=== PATIENT | female | born 1965 | race Caucasian/White ===

== ENCOUNTER 2018-12-02 17:47 | Emergency (ER) | payer MEDICAID ==
[2018-12-02] MEDS ORDERED: HYDROCODONE/ACETAMINOPHEN 5-325 MG TABLET PO ONE (18:22)
--- NOTE | 2018-12-02 18:24 | ER Document Report ---
ED Medical Screen (RME) - General Chief Complaint: Fall Stated Complaint: FALL Time Seen by Provider: 12/02/18 18:21 Mode of Arrival: Wheelchair Information source: Patient Notes: 52-year-old female presented to ED for complaint of falling x4 today. She states she has a history of severe degenerative disc disease and multiple falls over the last week with 4 falls today. She has a contusions and abrasions to the left knee and elbow. She states she fell on her arm once on her knee wants and flat on her back once. She states 1 of the pains is to her left elbow where she had surgery a month ago after she broke the left arm. She had surgery on the left arm to the back gallbladder and a hysterectomy. She is alert oriented respirations regular and unlabored and speaking in full sentences. I have greeted and performed a rapid initial assessment of this patient. A comprehensive ED assessment and evaluation of the patient, analysis of test results and completion of medical decision making process will be conducted by an additional ED providers. Dictation of this chart was performed using voice recognition software; therefore, there may be some unintended grammatical errors. TRAVEL OUTSIDE OF THE [place] IN LAST 30 DAYS: No - Related Data Allergies/Adverse Reactions: No Known Allergies Allergy (Verified 12/02/18 17:49) Past Medical History Renal/ Medical History: Denies: Hx Peritoneal Dialysis Past Surgical History: Reports: Hx Cholecystectomy, Hx Hysterectomy, Hx Orthopedic Surgery - L arm, back Physical Exam - Vital signs Vitals: Temp Pulse Resp BP Pulse Ox 97.8 F 96 20 99/67 L 97 12/02/18 18:07 12/02/18 18:07 12/02/18 18:07 12/02/18 18:07 12/02/18 18:07 Course - Vital Signs Vital signs: Temp Pulse Resp BP Pulse Ox 97.8 F 96 20 99/67 L 97 12/02/18 18:07 12/02/18 18:07 12/02/18 18:07 12/02/18 18:07 12/02/18 18:07
[2018-12-02 19:31] LABS: ABSOLUTE BASOPHILS # (AUTO) 0.1 10^3/uL (0.0-0.2); ABSOLUTE EOSINOPHILS # (AUTO) 0.1 10^3/uL (0.0-0.6); ABSOLUTE LYMPHOCYTES (AUTO) 5.4 10^3/uL (0.5-4.7); ABSOLUTE MONOCYTES (AUTO) 0.8 10^3/uL (0.1-1.4); ABSOLUTE NEUT (AUTO) 6.2 10^3/uL (1.7-8.2); BASOPHILS % (AUTO) 0.9 % (0-2); EOSINOPHILS % (AUTO) 1.1 % (0-6); HEMATOCRIT 41.9 % (36.0-47.0); HEMOGLOBIN 14.1 g/dL (12.0-15.5); LYMPHOCYTES % (AUTO) 42.9 % (13-45); MEAN CORPUSCULAR HEMOGLOBIN 29.8 pg (27.0-33.4); MEAN CORPUSCULAR HGB CONC 33.8 g/dL (32.0-36.0); MEAN CORPUSCULAR VOLUME 88 fl (80-97); MONOCYTES % (AUTO) 6.3 % (3-13); PLATELET COUNT 270 10^3/uL (150-450); RED BLOOD COUNT 4.75 10^6/uL (3.72-5.28); RED CELL DISTRIBUTION WIDTH 15.3 % (11.5-14.0); SEGMENTED NEUTROPHILS % (AUTO) 48.8 % (42-78); TOTAL CELLS COUNTED % (AUTO) 100 %; WHITE BLOOD COUNT 12.7 10^3/uL (4.0-10.5)
--- NOTE | 2018-12-02 19:36 | RADIOLOGY REPORT (SQ) ---
EXAM DESCRIPTION: ELBOW LEFT OVER 2 VIEWS COMPLETED DATE/TIME: 12/02/2018 7:00 pm REASON FOR STUDY: fall today 4 times pain COMPARISON: None. NUMBER OF VIEWS: Four views. TECHNIQUE: AP, lateral, and both oblique radiographic images acquired of the left elbow. LIMITATIONS: None. FINDINGS: MINERALIZATION: Normal. BONES: Slight plate and threaded screws traverse the olecranon fracture. No perihardware lucency or hardware fracture. Other than the internally fixed olecranon fracture, no additional fracture. JOINT: Alignment is normal. No visible joint effusion. SOFT TISSUES: No soft tissue gas. No foreign body. OTHER: No other significant finding. IMPRESSION: Internally fixed olecranon fracture without adverse features. TECHNICAL DOCUMENTATION: JOB ID: [id number] [employer]- All Rights Reserved Reading location - IP/workstation name: [email or web address]
--- NOTE | 2018-12-02 19:37 | RADIOLOGY REPORT (SQ) ---
EXAM DESCRIPTION: KNEE LEFT 4 VIEW COMPLETED DATE/TIME: 12/02/2018 7:00 pm REASON FOR STUDY: fall today 4 times pain COMPARISON: None. NUMBER OF VIEWS: Four views. TECHNIQUE: AP, lateral, and both oblique radiographic images acquired of the left knee. LIMITATIONS: None. FINDINGS: MINERALIZATION: Normal. BONES: No acute fracture or dislocation. No worrisome bone lesions. Mild spurring of the tibial spi ken. JOINT: No effusion. SOFT TISSUES: No soft tissue swelling. No radio-opaque foreign body. OTHER: No other significant finding. IMPRESSION: NEGATIVE STUDY OF THE LEFT KNEE. NO RADIOGRAPHIC EVIDENCE OF ACUTE INJURY. TECHNICAL DOCUMENTATION: JOB ID: [id number] [employer]- All Rights Reserved Reading location - IP/workstation name: [email or web address]
[2018-12-02 19:48] LABS: ALANINE AMINOTRANSFERASE 16 U/L (9-52); ALKALINE PHOSPHATASE 48 U/L (38-126); ANION GAP 11 (5-19); ASPARTATE AMINO TRANSFERASE 19 U/L (14-36); BILIRUBIN,DIRECT 0.3 mg/dL (0.0-0.4); BILIRUBIN,TOTAL 0.4 mg/dL (0.2-1.3); BLOOD UREA NITROGEN 13 mg/dL (7-20); CALCIUM 9.5 mg/dL (8.4-10.2); CARBON DIOXIDE 29 mmol/L (22-30); CHLORIDE 101 mmol/L (98-107); GLUCOSE 88 mg/dL (75-110); POTASSIUM 4.5 mmol/L (3.6-5.0)
--- NOTE | 2018-12-02 19:48 | RADIOLOGY REPORT (SQ) ---
EXAM DESCRIPTION: CT LUMBAR SPINE WITHOUT COMPLETED DATE/TIME: 12/02/2018 7:06 pm REASON FOR STUDY: multiple falls today increase in pain COMPARISON: None. TECHNIQUE: Axial images acquired through the lumbar spine without intravenous contrast. Images revi ewed with lung, soft tissue and bone windows. Reconstructed coronal and sagittal MPR images reviewed . All images stored on PACS. All CT scanners at this facility use dose modulation, iterative reconstruction, and/or weight based d osing when appropriate to reduce radiation dose to as low as reasonably achievable (ALARA). [facility]: Dose Right [facility]: CareDose [facility]: Dose Right [facility]: Teradose 4D [facility]: SilMach RADIATION DOSE: mGy. LIMITATIONS: None. FINDINGS: SEGMENTATION: Normal. No transitional anatomy. ALIGNMENT: Normal. VERTEBRAL BODIES: No fractures. No dislocation. No acute findings. DISCS: Mild diffuse loss of the disc heights, most pronounced at L4-L5. PEDICLES, TRANSVERSE PROCESSES: No fractures. No dislocation. No acute findings. FACETS, POSTERIOR ELEMENTS: No fractures. No dislocation. No spinal stenosis. Moderate multilevel facet arthropathy. HARDWARE: None in the spine. VISUALIZED RIBS: No fractures. SOFT TISSUES: Gallbladder surgically absent. Calcified plaque of the visualized aortoiliac system. Remainder of the visualized intra-abdominal contents have a normal noncontrast CT appearance. OTHER: No other significant finding. IMPRESSION: 1. No acute fracture or listhesis of the lumbar spine. 2. Mild degenerative disc disease. 3. Moderate facet arthropathy. TECHNICAL DOCUMENTATION: JOB ID: [id number] Quality ID # [id number]: Final reports with documentation of one or more dose reduction techniques (e.g., Au tomated exposure control, adjustment of the mA and/or kV according to patient size, use of iterative reconstruction technique) 2010 [employer]- All Rights Reserved Reading location - IP/workstation name: [email or web address]
[2018-12-02 20:03] LABS: APPEARANCE,URINE SLIGHTLY-CLOUDY; BILIRUBIN,URINE NEGATIVE (NEGATIVE); COLOR,URINE YELLOW; GLUCOSE, URINE NEGATIVE (NEGATIVE); KETONES,URINE NEGATIVE (NEGATIVE); LEUKOCYTE ESTERASE,URINE SMALL (NEGATIVE); NITRITE,URINE POSITIVE (NEGATIVE); PROTEIN,URINE NEGATIVE (NEGATIVE); URINE SPECIFIC GRAVITY 1.011; UROBILINOGEN,URINE NEGATIVE mg/dL (<2.0)
[2018-12-02] MEDS ORDERED: KETOROLAC TROMETHAMINE 60 MG/2 ML SDV IM ONE (20:36)
[2018-12-02] MEDS ORDERED: DEXAMETHASONE SOD PHOS INJ 10 MG/1 ML VIAL IM ONE (20:36)
--- NOTE | 2018-12-02 20:42 | ER Document Report ---
ED General - General Chief Complaint: Fall Stated Complaint: FALL Time Seen by Provider: 12/02/18 18:21 Primary Care Provider: TACHO ZEPEDA MD [ACTIVE STAFF] - Follow up as needed EBENEZER WILCOX MD [ACTIVE STAFF] - Follow up as needed VIKASH LARA MD [ACTIVE STAFF] - Follow up as needed Mode of Arrival: Wheelchair Notes: Patient is a 52-year-old female presents the emergency department after falling 4 times today. She states that she has been having back pain and has had a hard time getting up and down. She also has left arm pain. She states that she has been having pain because she has been having increased pain due to lifting and moving. Patiently currently takes Neurontin, Flexeril, and trazodone. She is a past surgical history of a cholecystectomy, hysterectomy, left ORIF of the elbow. Denies any dizziness, loss consciousness, hitting her head, or any other symptoms at this time. TRAVEL OUTSIDE OF THE [place] IN LAST 30 DAYS: No - Related Data Allergies/Adverse Reactions: No Known Allergies Allergy (Verified 12/02/18 17:49) Past Medical History - General Information source: Patient - Social History Smoking Status: Current Every Day Smoker Family History: Reviewed & Not Pertinent Patient has suicidal ideation: No Patient has homicidal ideation: No Renal/ Medical History: Denies: Hx Peritoneal Dialysis Past Surgical History: Reports: Hx Cholecystectomy, Hx Hysterectomy, Hx Orthopedic Surgery - L arm, back Review of Systems - Review of Systems Notes: REVIEW OF SYSTEMS: CONSTITUTIONAL : Denies recent illness. Denies recent unintentional weight loss. Denies fever, chills, or sweats. EENT: Denies eye, ear, throat, or mouth pain, discharge, or symptoms. Denies nasal or sinus congestion. CARDIOVASCULAR: Denies chest pain. RESPIRATORY: Denies shortness of breath, cough, congestion, difficulty breathing, or wheezing. GASTROINTESTINAL: Denies nausea, vomiting, and diarrhea. Denies abdominal pain. Denies constipation. GENITOURINARY: Denies difficulty urinating, burning, blood in urine, urgency or frequency. MUSCULOSKELETAL: See HPI SKIN: Denies rash, itchiness, or lesions HEMATOLOGIC : Denies easy bruising or bleeding. LYMPHATIC: Denies swollen, painful, enlarged glands. NEUROLOGICAL: Denies no numbness or tingling denies weakness. Denies headache. Denies altered mental status. Denies alteration in speech. PSYCHIATRIC: Denies stress, anxiety, alteration in sleep patterns, or depression. All other systems reviewed and negative. Physical Exam - Vital signs Vitals: Temp Pulse Resp BP Pulse Ox 97.8 F 96 20 99/67 L 97 12/02/18 18:07 12/02/18 18:07 12/02/18 18:07 12/02/18 18:07 12/02/18 18:07 - Notes Notes: PHYSICAL EXAMINATION: GENERAL: Appears chronically ill, well-nourished, no acute distress. HEAD: Normocephalic, atraumatic. EYES: PERRL, conjunctiva normal, all extraocular movements intact, sclera no nicteric ENT: Dry mucous membranes. NECK: Supple, no noticeable swelling, redness, rash. Normal range of motion. LUNGS: Equal breath sounds bilaterally and clear to auscultation. No wheezes rales or rhonchi. CARDIOVASCULAR: S1-S2, regular rate, regular rhythm. Radial pulses 2+, normal. ABDOMEN: Normoactive bowel sounds. Soft, nontender, no guarding, no rebound tenderness, and no masses palpated. EXTREMITIES: Normal strength and range of motion, no pitting or edema. No cyanosis. NEUROLOGICAL: Moves all extremities upon command. Strength 5/5 in all extremities. PSYCH: Normal mood, normal affect. SKIN: Warm, dry. No rash, lesions, ulcerations noted. Normal skin turgor. Course - Re-evaluation Re-evalutation: 12/02/18 20:43 CBC is unremarkable. Urinalysis is normal. I suspect the patient may be dehydrated. But she is able to tolerate oral fluids. I have encouraged her to increase her oral intake of water. Patient was able to walk for me with no difficulty. Her x-rays are all normal. Hardware is intact. No neurological deficits noted. Patient is strong in all extremities. She will receive a dose of Decadron and Toradol here in the emergency department. I have advised her that she needs to also take her Protonix per day while she is on her Toradol. She is in agreement with this plan. Verbal discharge instructions were given to the patient. They verbalized understanding. They are stable for discharge. - Vital Signs Vital signs: Temp Pulse Resp BP Pulse Ox 97.9 F 72 20 140/72 H 100 12/02/18 21:20 12/02/18 21:20 12/02/18 21:20 12/02/18 21:20 12/02/18 21:20 - Laboratory Result Diagrams: 12/02/18 18:24 12/02/18 18:24 Laboratory results interpreted by me: 12/02/18 12/02/18 12/02/18 18:24 18:24 19:30 WBC 12.7 H RDW 15.3 H Absolute Lymphocytes 5.4 H Est GFR (Non-Af Amer) 56 L Urine Blood SMALL H Urine Nitrite POSITIVE H Ur Leukocyte Esterase SMALL H Discharge - Discharge Clinical Impression: Fall Qualifiers: Encounter type: initial encounter Qualified Code(s): W19.XXXA - Unspecified fall, initial encounter Condition: Stable Disposition: HOME, SELF-CARE Additional Instructions: You are seen today in the emergency department for falling. Please take your gabapentin only as prescribed. Please do not take more than your prescribed dose. Please make sure you stay well-hydrated with water. You can take the prescribed medication every 6 hours as needed for your pain. Please take your Protonix while you are on this medication. Please follow-up with primary care provider in regards to this visit. They are listed below. Prescriptions: Ketorolac Tromethamine [Toradol 10 mg Tablet] 10 mg PO Q6HP PRN #20 tablet PRN Reason: Referrals: VIKASH LARA MD [ACTIVE STAFF] - Follow up as needed TACHO ZEPEDA MD [ACTIVE STAFF] - Follow up as needed EBENEZER WILCOX MD [ACTIVE STAFF] - Follow up as needed
[2018-12-02 21:28] VITALS: BP 140/72
== END 2018-12-02 21:20 | disposition home or self-care (01) ==
LOC: ER 17:47
DX: Z04.3 Encounter for examination and observation following other accident (principal); M54.9 Dorsalgia, unspecified; M79.602 Pain in left arm; Z79.899 Other long term (current) drug therapy; F17.200 Nicotine dependence, unspecified, uncomplicated; Z98.890 Other specified postprocedural states
CPT/HCPCS: 99284; 96372; 36415; 85025; 80053; 81001; 73080; 73564; 72131; J1885; J1100

== ENCOUNTER 2019-04-07 19:41 | Emergency (ER) | payer MEDICAID ==
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
[2019-04-07] MEDS ORDERED: LIDOCAINE 1% INJ-PF (10 MG/ML) 30 ML SDV INJ ONE (20:22)
[2019-04-07] MEDS ORDERED: TETANUS/DIPHTHERIA TOX-ADULT 0.5 ML SYR (>=7YO) IM ONE (20:41)
[2019-04-07] MEDS ORDERED: DIPH/PERTUSS(ACELL)/TETANUS VAC/PF 0.5 ML SYR (>=10YO) IM ONE (20:43)
[2019-04-07 20:45] LABS: ABSOLUTE BASOPHILS # (AUTO) 0.2 10^3/uL (0.0-0.2); ABSOLUTE EOSINOPHILS # (AUTO) 0.1 10^3/uL (0.0-0.6); ABSOLUTE MONOCYTES (AUTO) 0.7 10^3/uL (0.1-1.4); ABSOLUTE NEUT (AUTO) 6.1 10^3/uL (1.7-8.2); BASOPHILS % (AUTO) 1.3 % (0-2); HEMATOCRIT 42.1 % (36.0-47.0); HEMOGLOBIN 14.4 g/dL (12.0-15.5); LYMPHOCYTES % (AUTO) 45.4 % (13-45); MEAN CORPUSCULAR HEMOGLOBIN 30.2 pg (27.0-33.4); MEAN CORPUSCULAR HGB CONC 34.2 g/dL (32.0-36.0); MEAN CORPUSCULAR VOLUME 88 fl (80-97); MONOCYTES % (AUTO) 5.7 % (3-13); PLATELET COUNT 262 10^3/uL (150-450); RED BLOOD COUNT 4.76 10^6/uL (3.72-5.28); RED CELL DISTRIBUTION WIDTH 13.1 % (11.5-14.0); SEGMENTED NEUTROPHILS % (AUTO) 46.6 % (42-78); TOTAL CELLS COUNTED % (AUTO) 100 %; WHITE BLOOD COUNT 13.1 10^3/uL (4.0-10.5)
[2019-04-07 20:51] LABS: APPEARANCE,URINE CLEAR; BILIRUBIN,URINE NEGATIVE (NEGATIVE); COLOR,URINE YELLOW; GLUCOSE, URINE NEGATIVE (NEGATIVE); KETONES,URINE NEGATIVE (NEGATIVE); LEUKOCYTE ESTERASE,URINE NEGATIVE (NEGATIVE); NITRITE,URINE NEGATIVE (NEGATIVE); PROTEIN,URINE NEGATIVE (NEGATIVE); URINE SPECIFIC GRAVITY 1.015; UROBILINOGEN,URINE NEGATIVE mg/dL (<2.0)
[2019-04-07 21:04] LABS: URINE AMPHETAMINES SCREEN NEGATIVE; URINE BARBITURATES SCREEN NEGATIVE; URINE BENZODIAZEPINES SCREEN UNCONFIRMED POSITIVE; URINE COCAINE SCREEN NEGATIVE; URINE MARIJUANA (THC) SCREEN NEGATIVE; URINE METHADONE SCREEN NEGATIVE; URINE PHENCYCLIDINE SCREEN NEGATIVE
[2019-04-07 21:07] LABS: ALBUMIN 4.4 g/dL (3.5-5.0); ALKALINE PHOSPHATASE 58 U/L (38-126); ANION GAP 10 (5-19); ASPARTATE AMINO TRANSFERASE 24 U/L (14-36); BILIRUBIN,DIRECT 0.1 mg/dL (0.0-0.4); BILIRUBIN,TOTAL 0.4 mg/dL (0.2-1.3); BLOOD UREA NITROGEN 13 mg/dL (7-20); CALCIUM 9.4 mg/dL (8.4-10.2); CARBON DIOXIDE 26 mmol/L (22-30); CHLORIDE 103 mmol/L (98-107); GLUCOSE 139 mg/dL (75-110); POTASSIUM 4.3 mmol/L (3.6-5.0); TOTAL PROTEIN 7.5 g/dL (6.3-8.2)
[2019-04-07 21:16] LABS: ACETAMINOPHEN < 10 ug/mL (10-30); ALCOHOL < 10 mg/dL (NONE DETECTED); SALICYLATE < 1.0 mg/dL (2.0-20.0)
--- NOTE | 2019-04-07 21:41 | EKG REPORT ---
SEVERITY:- NORMAL ECG - SINUS RHYTHM : Confirmed by: Lonny Schuler MD 07-Apr-2019 21:41:06
[2019-04-07] MEDS ORDERED: TRAZODONE HCL 50 MG TABLET PO ONE (22:14)
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
[2019-04-08] MEDS ORDERED: DIPHENHYDRAMINE HCL 50 MG CAPSULE PO ONE (01:36)
[2019-04-08] MEDS ORDERED: ACETAMINOPHEN 325 MG TABLET PO ONE ×2 (01:36→14:44)
--- NOTE | 2019-04-08 10:17 | ER Document Report ---
Doctor's Note Notes: 04/08/19 10:14 Rounds: Chart reviewed and patient interviewed. Patient has a history of depression. Here because of suicidal thoughts. Cut her on, minor superficial not requiring sutures. Lab studies were unremarkable except for a white count of 13,000 but patient has no evidence of infections and she was positive for benzos and her drug screen. Vital signs are all essentially normal. Patient appears to be medically stable for transfer or discharge. Azeb Loza MD 04/08/19 10:16
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
[2019-04-08] MEDS ORDERED: GABAPENTIN 300 MG CAPSULE PO SCH (17:00)
[2019-04-08] MEDS ORDERED: KETOROLAC TROMETHAMINE 60 MG/2 ML SDV IM ONE (17:50)
[2019-04-08] MEDS: GABAPENTIN 300 MG CAPSULE PO SCH (18:12)
[2019-04-08] MEDS ORDERED: TRAZODONE HCL 50 MG TABLET PO SCH (22:00)
[2019-04-09 08:43] VITALS: BP 154/75
[2019-04-09] MEDS ORDERED: GABAPENTIN 300 MG CAPSULE PO SCH (10:00)
--- NOTE | 2019-04-09 10:02 | ER Document Report ---
Doctor's Note Notes: 04/09/19 09:59 I have evaluated this pt. this am and she has no c/o at this time. She feels all of her needs are being met and her physical exam is normal. She is awaiting disposition per mental health.
[2019-04-09] MEDS: GABAPENTIN 300 MG CAPSULE PO SCH (10:04)
== END 2019-04-09 14:00 | disposition home or self-care (01) ==
LOC: ER 19:41
DX: S51.811A Laceration without foreign body of right forearm, initial encounter (principal); X78.1XXA Intentional self-harm by knife, initial encounter; Y93.G3 Activity, cooking and baking; Y92.000 Kitchen of unspecified non-institutional (private) residence as the place of occurrence of the external cause; F17.200 Nicotine dependence, unspecified, uncomplicated; F12.10 Cannabis abuse, uncomplicated; F32.9 Major depressive disorder, single episode, unspecified; R45.851 Suicidal ideations; Z79.899 Other long term (current) drug therapy
CPT/HCPCS: 93005; 36415; 80307 ×4; 85025; 80053; 81001; 90715; 93010; J3490 ×2; 90471; 96374; 99285; J1885

== ENCOUNTER → 2019-06-21 | Outpatient (CLI) | payer MEDICAID ==
--- NOTE | 2019-06-21 19:23 | RADIOLOGY REPORT (SQ) ---
EXAM DESCRIPTION: U/S EXTREMITY NONVASCULAR LTD COMPLETED DATE/TIME: 06/21/2019 5:59 pm REASON FOR STUDY: (R22.9)LOCALIZED SWELLING, MASS AND LUMP, UNSPECIFIED R22.9 LOCALIZED SWELLING, M ASS AND LUMP, UNSPECIFIED COMPARISON: None. TECHNIQUE: Dynamic and static grayscale images acquired of the localized site of clinical concern an d recorded on PACS. Additional selected color Doppler and spectral images recorded. SITE OF CONCERN: Right buttock. LIMITATIONS: None. FINDINGS: Sonographic imaging of the area of concern on the right buttock shows an oval hypoechoic t o isoechoic mass measuring 3.4 x 3.9 x 1.1 cm. This is well-circumscribed and is not vascular. IMPRESSION: Nonspecific mass in the right buttock as described. This does not appear to represent a lipoma. Does not appear to represent a fluid collection. TECHNICAL DOCUMENTATION: JOB ID: [id number] [employer]- All Rights Reserved Reading location - IP/workstation name: [email or web address]
== END ==
LOC: RAD 17:08
PROVIDERS: ATTEND Physician Assistant
DX: R22.41 Localized swelling, mass and lump, right lower limb (principal)
CPT/HCPCS: 76882

== ENCOUNTER 2019-09-12 09:15 | Day surgery (SDC) | payer MEDICAID ==
[2019-09-10 11:17] LABS: HEMATOCRIT 43.9 % (36.0-47.0); HEMOGLOBIN 15.1 g/dL (12.0-15.5); MEAN CORPUSCULAR HEMOGLOBIN 31.5 pg (27.0-33.4); MEAN CORPUSCULAR HGB CONC 34.4 g/dL (32.0-36.0); MEAN CORPUSCULAR VOLUME 92 fl (80-97); PLATELET COUNT 267 10^3/uL (150-450); RED BLOOD COUNT 4.78 10^6/uL (3.72-5.28); RED CELL DISTRIBUTION WIDTH 14.4 % (11.5-14.0); WHITE BLOOD COUNT 11.6 10^3/uL (4.0-10.5)
[2019-09-10 11:48] LABS: ANION GAP 8 (5-19); BLOOD UREA NITROGEN 14 mg/dL (7-20); CALCIUM 9.3 mg/dL (8.4-10.2); CARBON DIOXIDE 30 mmol/L (22-30); CHLORIDE 102 mmol/L (98-107); GLUCOSE 112 mg/dL (75-110); POTASSIUM 4.4 mmol/L (3.6-5.0)
--- NOTE | 2019-09-10 18:09 | EKG REPORT ---
SEVERITY:- NORMAL ECG - SINUS RHYTHM : Confirmed by: Komal Mcdonald MD 10-Sep-2019 18:08:44
[~2019-09-12 09:15] MED LIST: CEFAZOLIN 1 GM/D5W RTU 1 GM/50 ML RTUPB IV PRN; CEFAZOLIN INJ 1 GM VIAL ONE; LACTATED RINGERS 1000 ML IV PRN; NORMAL SALINE 1000 ML 1,000 ML IV PRN
[2019-09-12] MEDS ORDERED: LIDOCAINE 1% INJ (10 MG/ML) 10 ML MDV INJ ONE ×2 (11:50)
[2019-09-12] MEDS ORDERED: FENTANYL CITRATE INJ/PF 100 MCG/2 ML AMPUL ONE ×2 (12:16→13:32)
[2019-09-12] MEDS ORDERED: MIDAZOLAM 2 MG/2 ML INJ ONE (12:16)
[2019-09-12] MEDS ORDERED: PROPOFOL INJ 200 MG/20 ML VIAL IV ONE (12:17)
[2019-09-12] MEDS ORDERED: ONDANSETRON HCL INJ/PF 4 MG/2 ML SDV ONE (12:17)
[2019-09-12] MEDS ORDERED: FENTANYL CITRATE INJ/PF 100 MCG/2 ML AMPUL IV PRN ×3 (13:03)
[2019-09-12] MEDS ORDERED: DIPHENHYDRAMINE HCL 50 MG/ML VIAL IV PRN (13:03)
[2019-09-12] MEDS ORDERED: MEPERIDINE HCL/PF INJ 25 MG/1 ML DISP.SYRIN IV PRN (13:03)
[2019-09-12] MEDS ORDERED: PROMETHAZINE HCL INJ 25 MG/1 ML VIAL IV PRN ×2 (13:03)
[2019-09-12] MEDS ORDERED: OXYCODONE-ACETAMINOPHEN 5-325 MG TABLET PO PRN ×2 (13:03)
--- NOTE | 2019-09-12 13:18 | Discharge Summary ---
Discharge Summary (SDC) - Discharge Final Diagnosis: Right sacral lipoma status post removal Date of Surgery: 09/12/19 Discharge Date: 09/12/19 Condition: Good Treatment or Instructions: Resume preoperative medications, diet and activity. Return [place] [facility] 2 weeks;may take Tylenol Motrin PRN pain Referrals: ROCKY MANNING MD [Primary Care Provider] - Discharge Diet: As Tolerated Discharge Activity: Activity As Tolerated Home Care Assistance: None Needed Report the Following to Your Physician Immediately: Shortness of Breath, Increase in Pain, Fever over 101 Degrees
--- NOTE | 2019-09-12 13:21 | Operative Report ---
Operative Report DATE OF SURGERY: 09/12/19 PREOPERATIVE DIAGNOSIS: Right sacral lipoma POSTOPERATIVE DIAGNOSIS: Same OPERATION: Complete excision of right sacral lipoma with primary closure SURGEON: CHRISTOPHER SUERO ANESTHESIA: LMAC TISSUE REMOVED OR ALTERED: Lipoma right sacral area COMPLICATIONS: None ESTIMATED BLOOD LOSS: Scant INTRAOPERATIVE FINDINGS: See below PROCEDURE: Patient was seen in the preop holding area where the right sacral mass was palpated and confirmed by patient to be the target lesion. The lesion was marked. The patient was taken to the main operating room where LMAC anesthesia was induced. She is placed in the prone position. Right lower back prepped and draped sterile fashion with Betadine Surgical plan surgical timeout conducted. The skin overlying the mass was anesthetized 1% plain lidocaine. Approximately 4 and half to 5 cm incision was made over the mass. The underlying mass consistent with poorly circumscribed lipoma was excised in its entirety. It was sent to pathology for permanent analysis. Careful hemostasis was achieved with electrocautery, and 2-0 Vicryl suture securing the small vascular pedicles. Closed at the dermal level with 2-0 Vicryl suture. Benzoin and Steri-Strips applied. Patient tolerated procedure well, taken recovery room in stable condition.
[2019-09-12] MEDS ORDERED: KETOROLAC TROMETHAMINE INJ/PF 30 MG/1 ML SDV IV PRN (14:25)
[2019-09-12 14:58] VITALS: BP 155/73
== END 2019-09-12 14:50 | disposition home or self-care (01) ==
LOC: OROUT 09:15
PROVIDERS: ATTEND Surgery
DX: D17.1 Benign lipomatous neoplasm of skin and subcutaneous tissue of trunk (principal); I25.2 Old myocardial infarction; E66.9 Obesity, unspecified; Z68.35 Body mass index [BMI] 35.0-35.9, adult; E78.00 Pure hypercholesterolemia, unspecified; Z85.6 Personal history of leukemia; Z87.891 Personal history of nicotine dependence
CPT/HCPCS: 21932; 93005; 36415; 85027; 80048; 88305 ×2; 93010; 00300; J2250; J0690; J3010; J3490 ×2; J1885; J2405; J2704; 300

== ENCOUNTER 2020-05-12 11:07 | Emergency (ER) | payer MEDICAID ==
[2020-05-12 11:44] VITALS: BP 156/90
[2020-05-12] MEDS ORDERED: ONDANSETRON 4 MG TAB.RAPDIS PO ONE (12:03)
--- NOTE | 2020-05-12 12:04 | ER Document Report ---
ED Medical Screen (RME) - General Chief Complaint: Back Pain Stated Complaint: BACK PROBLEM - DR REFERRED Time Seen by Provider: 05/12/20 12:00 Primary Care Provider: ROCKY MANNING MD [Primary Care Provider] - Follow up as needed Information source: Patient Notes: Patient presents complaining of right lower back pain for the past 3 weeks. Patient saw her primary doctor and was advised to come here for x-rays. Patient reports mild cough that she attributes to the weather change. Patient also reports nausea vomiting diarrhea. Patient reports vomiting once today and having diarrhea for the past 4 days. I have greeted and performed a rapid initial assessment of this patient. A comprehensive ED assessment and evaluation of the patient, analysis of test results and completion of the medical decision making process will be conducted by additional ED providers. TRAVEL OUTSIDE OF THE [place] IN LAST 30 DAYS: No - Related Data Allergies/Adverse Reactions: No Known Allergies Allergy (Verified 09/12/19 10:36) Past Medical History - Past Medical History Cardiac Medical History: Reports: Hx Coronary Artery Disease, Hx Heart Attack - 2016 MILD NO INTERVENTION, Hx Hypertension - HX NO LONGER ON MEDICATION Pulmonary Medical History: Denies: Hx Asthma, Hx Bronchitis, Hx COPD, Hx Pneumonia Neurological Medical History: Reports: Hx Cerebrovascular Accident - 2016 NO DEFICITS. Denies: Hx Seizures Renal/ Medical History: Denies: Hx Peritoneal Dialysis Musculoskeltal Medical History: Denies Hx Arthritis Psychiatric Medical History: Reports: Hx Depression Past Surgical History: Reports: Hx Cholecystectomy, Hx Hysterectomy, Hx Orthopedic Surgery - L arm, back - Immunizations Hx Diphtheria, Pertussis, Tetanus Vaccination: Yes Physical Exam - Vital signs Vitals: Temp Pulse Resp BP Pulse Ox 98.6 F 92 18 156/90 H 95 05/12/20 11:42 05/12/20 11:42 05/12/20 11:42 05/12/20 11:42 05/12/20 11:42 - Back Back: Tender - Right lower lumbar paraspinal tenderness Course - Vital Signs Vital signs: Temp Pulse Resp BP Pulse Ox 98.6 F 92 18 156/90 H 95 05/12/20 11:42 05/12/20 11:42 05/12/20 11:42 05/12/20 11:42 05/12/20 11:42 Doctor's Discharge - Discharge Referrals: ROCKY MANNING MD [Primary Care Provider] - Follow up as needed
--- NOTE | 2020-05-12 12:36 | ER Document Report ---
ED Neck/Back Problem - General Stated Complaint: BACK PROBLEM - DR REFERRED Time Seen by Provider: 05/12/20 12:00 Primary Care Provider: ROCKY MANNING MD [COMMUNITY BASED STAFF] - Follow up as needed Notes: 05/12/20 12:00 - ED Nursing Note by ATUL MARCUS [facility] Num: [id number] : 1965 Patient Age: 54 Pt presents to ED for back pain that started 2-3 weeks ago. The pain is in the right lower back. No injury. No numbness/tingling. Pt reports one episode on incontinence 1.5 weeks ago. The pt also had diarrhea, vomiting since 05/08 and cough. The pt denies sick contact or recent travel. Pt is aox4 .Resps e/u D Medical Screen ([place] notes) - General Chief Complaint: Back Pain Stated Complaint: BACK PROBLEM - DR REFERRED Time Seen by Provider: 05/12/20 12:00 Primary Care Provider: ROCKY MANNING MD [Primary Care Provider] - Follow up as needed Information source: Patient Notes: Patient presents complaining of right lower back pain for the past 3 weeks. Patient saw her primary doctor and was advised to come here for x-rays. Patient reports mild cough that she attributes to the weather change. Patient also reports nausea vomiting diarrhea. Patient reports vomiting once today and having diarrhea for the past 4 days. MY NOTES 54-year-old female with chief complaint of right lower back pain for 3 weeks and also nausea vomiting diarrhea x4 days and cough. Patient reports she has had loose brown diarrhea for 4 days and the cough began today. She has been taking a unfortunate family to daycare for the last week. Their ages were 1 and 2 and 3 years of age. She just found out today at 6 AM that the [facility] daycare center she has been taking them to has a solomon virus outbreak. The patient was sent here by pain management because of her right SI joint severe pain. As swelling there as well. She also is been having bilateral forearm outbreak over the last 1 to 2 days of purpuric type lesions. These are only on the dorsum of her forearms and none on her hands or feet at this time. She denies any headache but does complain of fever and chills. TRAVEL OUTSIDE OF THE [place] IN LAST 30 DAYS: No - Related Data Allergies/Adverse Reactions: No Known Allergies Allergy (Verified 09/12/19 10:36) Past Medical History - General Information source: Patient - Social History Smoking Status: Current Every Day Smoker Family History: Reviewed & Not Pertinent - Past Medical History Cardiac Medical History: Reports: Hx Coronary Artery Disease, Hx Heart Attack - 2016 MILD NO INTERVENTION, Hx Hypertension - HX NO LONGER ON MEDICATION Pulmonary Medical History: Denies: Hx Asthma, Hx Bronchitis, Hx COPD, Hx Pneumonia Neurological Medical History: Reports: Hx Cerebrovascular Accident - 2016 NO DEFICITS. Denies: Hx Seizures Renal/ Medical History: Denies: Hx Peritoneal Dialysis Musculoskeletal Medical History: Denies Hx Arthritis Psychiatric Medical History: Reports: Hx Depression Past Surgical History: Reports: Hx Cholecystectomy, Hx Hysterectomy, Hx Orthopedic Surgery - L arm, back - Immunizations Hx Diphtheria, Pertussis, Tetanus Vaccination: Yes Physical Exam - Vital signs Vitals: Temp Pulse Resp BP Pulse Ox 98.6 F 92 18 156/90 H 95 05/12/20 11:42 05/12/20 11:42 05/12/20 11:42 05/12/20 11:42 05/12/20 11:42 Interpretation: Hypertensive - General General appearance: Appears well, Alert - HEENT Head: Normocephalic, Atraumatic Eyes: Normal Pupils: PERRL - Respiratory Respiratory status: No respiratory distress Chest status: Nontender Breath sounds: Normal Chest palpation: Normal - Cardiovascular Rhythm: Regular Heart sounds: Normal auscultation Murmur: No - Abdominal Inspection: Normal Distension: No distension Bowel sounds: Normal Tenderness: Nontender Organomegaly: No organomegaly - Rectal Hemorrhoids: Other - deferred - Genitourinary Bimanuel exam: Other - deferred - Back Back: Tender - right SI jt tender and swollen with firm 4 cm mass SQ - Extremities General upper extremity: Normal inspection, Nontender, Normal color, Normal ROM, Normal temperature General lower extremity: Normal inspection, Nontender, Normal color, Normal ROM, Normal temperature, Normal weight bearing. No: Dina's sign - Neurological Neuro grossly intact: Yes Cognition: Normal Orientation: AAOx4 Jackson Coma Scale Eye Opening: Spontaneous Jackson Coma Scale Verbal: Oriented Jackson Coma Scale Motor: Obeys Commands Alverto Coma Scale Total: 15 Speech: Normal Motor strength normal: LUE, RUE, LLE, RLE Sensory: Normal - Psychological Associated symptoms: Normal affect, Normal mood - Skin Skin Temperature: Warm Skin Moisture: Dry Skin Color: Erythema, Mottled Irregularity with: Other - Right SI question of lipoma. Patient reports she has had one lipoma resected from surgery center here at [place]. Around the same area. Course - Vital Signs Vital signs: Temp Pulse Resp BP Pulse Ox 98.6 F 92 18 156/90 H 95 05/12/20 11:42 05/12/20 11:42 05/12/20 11:42 05/12/20 11:42 05/12/20 11:42 - Laboratory Result Diagrams: 05/12/20 12:23 05/12/20 12:23 Laboratory results interpreted by me: 05/12/20 05/12/20 12:23 12:23 WBC 15.6 H Absolute Neuts (auto) 8.5 H Absolute Lymphs (auto) 6.2 H Glucose 124 H - Diagnostic Test Radiology reviewed: Reports reviewed Critical Care Note - Critical Care Note Comments: Patient much improved by time of discharge. She still wonders why she has purple spots on her forearms and I advised these are senile purpura and she may take some vitamin C and eat glucosamine or Jell-O to help improve vascular integrity. Discharge - Discharge Clinical Impression: COVID-19 virus test result unknown, Back pain, sacroiliac, Senile purpura Diarrhea Qualifiers: Diarrhea type: unspecified type Qualified Code(s): R19.7 - Diarrhea, unspecified Condition: Stable Disposition: HOME, SELF-CARE Additional Instructions: Follow-up with personal doctor this week off work as directed and avoid other people while in quarantine; also avoid the daycare center and children you have been escorting to the daycare because of coronavirus. May use [id number] Voltaren gel for your SI pain Prescriptions: Dexamethasone [Decadron 4 Mg Tablet] 4 mg PO DAILY #5 tablet Famotidine [Pepcid 20 mg Tablet] 20 mg PO BID #12 tablet Azithromycin [Zithromax 250 mg Tablet] 250 mg PO ASDIR PRN #6 tablet PRN Reason: Referrals: ROCKY MANNING MD [COMMUNITY BASED STAFF] - Follow up as needed
[2020-05-12 12:48] LABS: ABSOLUTE BASOPHILS # (AUTO) 0.1 10^3/uL (0.0-0.2); ABSOLUTE EOSINOPHILS # (AUTO) 0.1 10^3/uL (0.0-0.6); ABSOLUTE LYMPHOCYTES (AUTO) 6.2 10^3/uL (0.5-4.7); ABSOLUTE MONOCYTES (AUTO) 0.7 10^3/uL (0.1-1.4); ABSOLUTE NEUT (AUTO) 8.5 10^3/uL (1.7-8.2); BASOPHILS % (AUTO) 0.6 % (0-2); EOSINOPHILS % (AUTO) 0.6 % (0-6); HEMOGLOBIN 15.4 g/dL (12.0-15.5); LYMPHOCYTES % (AUTO) 39.9 % (13-45); MEAN CORPUSCULAR HEMOGLOBIN 31.4 pg (27.0-33.4); MEAN CORPUSCULAR HGB CONC 34.9 g/dL (32.0-36.0); MEAN CORPUSCULAR VOLUME 90 fl (80-97); MONOCYTES % (AUTO) 4.4 % (3-13); PLATELET COUNT 285 10^3/uL (150-450); RED BLOOD COUNT 4.89 10^6/uL (3.72-5.28); RED CELL DISTRIBUTION WIDTH 13.8 % (11.5-14.0); SEGMENTED NEUTROPHILS % (AUTO) 54.5 % (42-78); TOTAL CELLS COUNTED % (AUTO) 100 %; WHITE BLOOD COUNT 15.6 10^3/uL (4.0-10.5)
--- NOTE | 2020-05-12 13:17 | RADIOLOGY REPORT (SQ) ---
EXAM DESCRIPTION: L SPINE WHOLE IMAGES COMPLETED DATE/TIME: 05/12/2020 12:59 pm REASON FOR STUDY: low back pain COMPARISON: None. NUMBER OF VIEWS: Five views including obliques. TECHNIQUE: AP, lateral, oblique, and sacral radiographic images acquired of the lumbar spine. LIMITATIONS: None. FINDINGS: MINERALIZATION: Normal. SEGMENTATION: Normal. No transitional anatomy. ALIGNMENT: Normal. VERTEBRAE: Maintained height. No fracture or worrisome bone lesion. DISCS: Multilevel disc space narrowing with osteophytes. Changes are most prominent at L4-L5 and L5- S1. POSTERIOR ELEMENTS: Pedicles and facets are intact. No pars defect or posterior arch defects. Facet arthropathy is present. HARDWARE: None in the spine. PARASPINAL SOFT TISSUES: Normal. PELVIS: Intact as visualized. No fractures or worrisome bone lesions. SI joints intact. OTHER: No other significant finding. IMPRESSION: SPONDYLOSIS WITHOUT BONE LESION OR FRACTURE. TECHNICAL DOCUMENTATION: JOB ID: [id number] 2010 [employer]- All Rights Reserved Reading location - IP/workstation name: [email or web address]
--- NOTE | 2020-05-12 13:24 | RADIOLOGY REPORT (SQ) ---
EXAM DESCRIPTION: ACUTE ABDOMEN SERIES IMAGES COMPLETED DATE/TIME: 05/12/2020 11:59 am REASON FOR STUDY: cough n/v/d COMPARISON: None. NUMBER OF VIEWS: Three views. TECHNIQUE: Frontal chest, supine abdomen and upright/decubitus abdomen radiographic images acquired. LIMITATIONS: None. FINDINGS: CHEST: Lungs clear of infiltrates. FREE AIR: None. No abnormal gas collections. BOWEL GAS PATTERN: Nonobstructive pattern. No dilated loops or air fluid levels. CALCIFICATIONS: No suspicious calcifications. HARDWARE: None in the abdomen. SOFT TISSUES: No gross mass or suggestion of organomegaly. BONES: No acute fracture. No worrisome bone lesions. OTHER: No other significant finding. IMPRESSION: Nonobstructive bowel gas pattern. No acute cardiopulmonary disease. TECHNICAL DOCUMENTATION: JOB ID: [id number] [employer]- All Rights Reserved Reading location - IP/workstation name: [id number]
[2020-05-12] MEDS ORDERED: CEFTRIAXONE INJ 1000 MG VIAL IV ONE (13:45)
[2020-05-12] MEDS ORDERED: FAMOTIDINE INJ/PF 20 MG/2 ML SDV IV ONE (13:45)
[2020-05-12] MEDS ORDERED: DEXAMETHASONE SOD PHOS INJ 10 MG/1 ML VIAL IV ONE (13:45)
[2020-05-12] MEDS ORDERED: MORPHINE SULFATE 10 MG/ML INJ IV ONE (13:46)
--- NOTE | 2020-05-12 15:01 | RADIOLOGY REPORT (SQ) ---
EXAM DESCRIPTION: CT ABD/PELVIS NO ORAL OR IV IMAGES COMPLETED DATE/TIME: 05/12/2020 2:50 pm REASON FOR STUDY: right SI pain swelling COMPARISON: None. TECHNIQUE: CT scan of the abdomen and pelvis performed without intravenous or oral contrast. Images reviewed with lung, soft tissue, and bone windows. Reconstructed coronal and sagittal MPR images revi ewed. All images stored on PACS. All CT scanners at this facility use dose modulation, iterative reconstruction, and/or weight based d osing when appropriate to reduce radiation dose to as low as reasonably achievable (ALARA). [facility]: Dose Right [facility]: CareDose [facility]: Dose Right [facility]: Teradose 4D [facility]: Barburrito RADIATION DOSE: CT Rad equipment meets quality standard of care and radiation dose reduction techniq ues were employed. CTDIvol: 16.6 mGy. DLP: 1017 mGy-cm.mGy. LIMITATIONS: None. FINDINGS: LOWER CHEST: No significant findings. No nodules or infiltrates. NON-CONTRASTED LIVER, SPLEEN, ADRENALS: Evaluation limited by lack of IV contrast. No identified sign ificant masses. PANCREAS: No masses. No peripancreatic inflammatory changes. GALLBLADDER: Surgically absent. RIGHT KIDNEY AND URETER: No suspicious masses. Assessment limited by lack of IV contrast. No signif icant calcifications. No hydronephrosis or hydroureter. LEFT KIDNEY AND URETER: No suspicious masses. Assessment limited by lack of IV contrast. No signifi cant calcifications. No hydronephrosis or hydroureter. AORTA AND RETROPERITONEUM: No aneurysm. No retroperitoneal masses or adenopathy. BOWEL AND PERITONEAL CAVITY: No obvious masses or inflammatory changes. No free fluid. APPENDIX: Normal. PELVIS, BLADDER, AND ABDOMINAL WALL:No abnormal masses. No free fluid. Bladder normal. BONES: Degenerative changes in the lumbar spine. OTHER: No other significant finding. IMPRESSION: NO SIGNIFICANT OR ACUTE PROCESS IN THE ABDOMEN OR PELVIS. COMMENT: Quality ID # [id number]: Final reports with documentation of one or more dose reduction techniques (e.g., Automated exposure control, adjustment of the mA and/or kV according to patient size, use of iterative reconstruction technique) TECHNICAL DOCUMENTATION: JOB ID: [id number] 2010 [employer]- All Rights Reserved Reading location - IP/workstation name: [email or web address]
[2020-05-12] MEDS ORDERED: HYDROMORPHONE HCL INJ/PF 2 MG/ML AMPULE IV ONE (15:19)
[2020-05-12 15:25] LABS: ALBUMIN 4.2 g/dL (3.5-5.0); ALKALINE PHOSPHATASE 58 U/L (38-126); ANION GAP 10 (5-19); ASPARTATE AMINO TRANSFERASE 30 U/L (14-36); BILIRUBIN,DIRECT 0.2 mg/dL (0.0-0.4); BILIRUBIN,TOTAL 0.7 mg/dL (0.2-1.3); BLOOD UREA NITROGEN 8 mg/dL (7-20); CALCIUM 9.5 mg/dL (8.4-10.2); CARBON DIOXIDE 26 mmol/L (22-30); CHLORIDE 103 mmol/L (98-107); GLUCOSE 124 mg/dL (75-110); TOTAL PROTEIN 7.5 g/dL (6.3-8.2)
== END 2020-05-12 18:27 | disposition home or self-care (01) ==
LOC: ER 11:07
DX: M53.3 Sacrococcygeal disorders, not elsewhere classified (principal); D69.2 Other nonthrombocytopenic purpura; M54.9 Dorsalgia, unspecified; M54.5 Low back pain; R05 Cough; R19.7 Diarrhea, unspecified; R11.2 Nausea with vomiting, unspecified; Z20.828 Contact with and (suspected) exposure to other viral communicable diseases; F17.200 Nicotine dependence, unspecified, uncomplicated; I25.10 Atherosclerotic heart disease of native coronary artery without angina pectoris; I10 Essential (primary) hypertension
CPT/HCPCS: 99285; 96375; 96365; 96368; 36415; 87040; 83605; 85025; 87635; 80053; 74022; 72110; 74176; S0119; J2270; J1170; J0696; S0028; J1100; C9803; 87077; 87150

== ENCOUNTER 2020-05-27 13:56 | Emergency (ER) | payer MEDICAID, OTHER ==
[2020-05-27] MEDS ORDERED: CYCLOBENZAPRINE HCL 10 MG TABLET PO ONE (16:17)
[2020-05-27] MEDS ORDERED: HYDROCODONE/ACETAMINOPHEN 5-325 MG TABLET PO ONE (16:17)
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
--- NOTE | 2020-05-27 17:36 | RADIOLOGY REPORT (SQ) ---
EXAM DESCRIPTION: FOREARM LEFT COMPLETED DATE/TIME: 05/27/2020 3:44 pm REASON FOR STUDY: injury COMPARISON: None. NUMBER OF VIEWS: Two views. TECHNIQUE: Two radiographic images acquired of the left forearm, including elbow and wrist in at [address] one projection. LIMITATIONS: None. FINDINGS: MINERALIZATION: Normal. BONES: Postoperative change in the proximal ulna. No evidence of hardware fracture, loosening or sub sidence. No acute fracture or cortical disruption. No lytic or blastic bone lesion. SOFT TISSUES: No obvious swelling or foreign body. OTHER: No other significant finding. IMPRESSION: No radiographic abnormality of the left forearm. Postoperative changes at the proximal ulna without evidence of hardware complication. TECHNICAL DOCUMENTATION: JOB ID: [id number] 2010 [employer]- All Rights Reserved Reading location - IP/workstation name: [email or web address]
--- NOTE | 2020-05-27 17:37 | RADIOLOGY REPORT (SQ) ---
EXAM DESCRIPTION: L SPINE WHOLE IMAGES COMPLETED DATE/TIME: 05/27/2020 3:44 pm REASON FOR STUDY: injury COMPARISON: None. NUMBER OF VIEWS: Five views including obliques. TECHNIQUE: AP, lateral, oblique, and sacral radiographic images acquired of the lumbar spine. LIMITATIONS: None. FINDINGS: MINERALIZATION: Normal. SEGMENTATION: Normal. No transitional anatomy. ALIGNMENT: Normal. VERTEBRAE: Maintained height. No fracture or worrisome bone lesion. DISCS: Mild degenerative disc disease. POSTERIOR ELEMENTS: There is facet arthropathy in the lower lumbar spine. Pedicles and facets are in tact. No pars defect or posterior arch defects. HARDWARE: None in the spine. PARASPINAL SOFT TISSUES: Normal. PELVIS: Intact as visualized. No fractures or worrisome bone lesions. SI joints intact. OTHER: No other significant finding. IMPRESSION: No acute fracture or dislocation of the lumbar spine. Facet arthropathy and degenerativ e disc disease. TECHNICAL DOCUMENTATION: JOB ID: [id number] 2010 [email or web address]- All Rights Reserved Reading location - IP/workstation name: [id number]
[2020-05-27 17:59] LABS: APPEARANCE,URINE SLIGHTLY-CLOUDY; BILIRUBIN,URINE NEGATIVE (NEGATIVE); COLOR,URINE YELLOW; GLUCOSE, URINE NEGATIVE (NEGATIVE); KETONES,URINE NEGATIVE (NEGATIVE); LEUKOCYTE ESTERASE,URINE TRACE (NEGATIVE); NITRITE,URINE NEGATIVE (NEGATIVE); PROTEIN,URINE 30 mg/dL (NEGATIVE); URINE SPECIFIC GRAVITY 1.025
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
[2020-05-27 19:05] VITALS: BP 148/70
--- OUTSIDE RECORDS SUMMARY | 2020-05-29 17:42 | XMS REPORT ---
:1965 Author Organization [facility], [facility] Address [address] [address] Care Team Providers Name Role Phone Unavailable Unavailable Unavailable Allergies, Adverse Reactions, Alerts This patient has no known allergies or adverse reactions. Medications This patient has no known medications. Problems This patient has no known problems. Procedures This patient has no known procedures. Results Test Description Test Time Test Comments Text Results Atomic Results Result Comments T4, FREE 2020-03-25 09:37:00 Test Item Value Reference Range Comments T4, FREE (test code = 3024-7) 1.1 ng/dL 0.8-1.8 [id number] 09:37:00 Test Item Value Reference Range Comments TSH (test code = 3016-3) 2.73 mIU/L .4-4.5 Referen ce Range> or = 20 Years 0.40-4.50Pregnan cy RangesFirst trimester 0.26-2 .66Second trimester 0.55-2 .73Third trimester 0.43-2 .91 CULTURE, URINE, [id number] 09:37:00 Test Item Value Reference Range Comments SOURCE: (test code = 22529-1) URINE STATUS: (test code = 8251-1) FINAL ISOLATE 1: (test code = Greater than 100,000 CFU/mL 29953-1) ofEscherichia co li ISOLATE 2: (test code = 50,000-1 00,000 CFU/mL 82206-5) ofEscherichia co li CULTURE, URINE, [id number] 09:37:00 Test Item Value Reference Range Comments ISOLATE (test code = Escherichia coli 81121-1) AMOXICILLIN/CLAVULANIC (test <=2~S code = 34982-8) AMPICILLIN (test code = <=2~S 93184-6) AMPICILLIN/SULBACTAM (test <=2~S code = 74691-2) CEFAZOLIN (test code = <=4~NR For infec tions other than 05918-0) uncomplicated UT Icaused by E. coli, K. pneumon iae or P. mirabilis:Cefazo graeme is resistant if AWAIS > or = 8 mcg/mL.(Distingu ishing susceptible vers us intermediatefor isolates with AWAIS < or = 4 mcg /mL requiresaddition al testing.)For uncomplicated UT I caused by E. coli,K. pneumoni ae or P. mirabilis: Cefaz werner issusceptible if AWAIS <32 mcg/mL and predictssusc eptible to the oral agents cefa clor, cefdinir,cefpodo tamar, cefprozil, cefuroxime, ceph alexinand loracarbef. CEFEPIME (test code = <=1~S 49051-0) CEFTRIAXONE (test code = <=1~S 55785-5) CIPROFLOXACIN (test code = <=0.25~S 51240-7) LEVOFLOXACIN (test code = <=0.12~S 68573-1) ERTAPENEM (test code = <=0.5~S 47264-3) GENTAMICIN (test code = <=1~S 17671-9) IMIPENEM (test code = <=0.25~S 84752-3) NITROFURANTOIN (test code = <=16~S 79081-7) PIPERACILLIN/TAZOBACTAM <=4~S (test code = 04259-2) TOBRAMYCIN (test code = <=1~S 39111-1) TRIMETHOPRIM/SULFA (test <=20~S code = 30910-7) CULTURE, URINE, [id number] 09:37:00 Test Item Value Reference Range Comments ISOLATE (test code = 03871-1) Es cherichia coli AMOXICILLIN/CLAVULANIC (test 8~S code = 32081-5) AMPICILLIN (test code = 8~S 00412-7) AMPICILLIN/SULBACTAM (test code 8~S = 92790-6) CEFAZOLIN (test code = 25767-7) <=4~NR CEFEPIME (test code = 49325-1) <=1~S CEFTRIAXONE (test code = <=1~S 41970-9) CIPROFLOXACIN (test code = <=0.25~S 23941-0) LEVOFLOXACIN (test code = <=0.12~S 48749-2) ERTAPENEM (test code = 74923-9) <=0.5~S GENTAMICIN (test code = <=1~S 89737-4) IMIPENEM (test code = 13628-5) <=0.25~S NITROFURANTOIN (test code = 32~S 67646-9) PIPERACILLIN/TAZOBACTAM (test <=4~S code = 26114-7) TOBRAMYCIN (test code = <=1~S 02365-6) TRIMETHOPRIM/SULFA (test code = <=20~S Legend:S = Susceptible I = 05515-7) IntermediateR = Resistant NS = Not susceptibl e* = Not tested NR = Not reportedNN = See antimicrob ic comments EXTRA LAVENDER-TOP [id number] 09:37:00 Test Item Value Reference Range Comments EXTRA LAVENDER-TOP TUBE (test code = 79862190) ISAMAR Social History This patient has no known social history. Vital Signs This patient has no known vital signs.
== END 2020-05-27 19:04 | disposition home or self-care (01) ==
LOC: ER 13:56
DX: M79.632 Pain in left forearm (principal); M54.41 Lumbago with sciatica, right side; M51.36 Other intervertebral disc degeneration, lumbar region; Y04.2XXA Assault by strike against or bumped into by another person, initial encounter; Y92.210 Daycare center as the place of occurrence of the external cause; F17.200 Nicotine dependence, unspecified, uncomplicated; Z88.6 Allergy status to analgesic agent; Z90.49 Acquired absence of other specified parts of digestive tract; Z90.710 Acquired absence of both cervix and uterus; I25.2 Old myocardial infarction
CPT/HCPCS: 99284; 81001; 73090; 72110; J3490